=== PATIENT | female | born 1945 | race Asian ===

== ENCOUNTER 2019-08-19 08:55 | Outpatient (CLI) | payer OTHER, BC ==
[2019-08-19 09:28] LABS: PLATELET COUNT 245 K/uL (152-353)
[2019-08-19 09:54] LABS: POTASSIUM 4.5 mmol/L (3.6-5.2)
== END 2019-08-19 21:29 | disposition home or self-care (01) ==
LOC: LABW 08:55
PROVIDERS: Internal Medicine
DX: Z79.899 Other long term (current) drug therapy (principal); E78.49 Other hyperlipidemia; E03.8 Other specified hypothyroidism; E55.9 Vitamin D deficiency, unspecified; E11.43 Type 2 diabetes mellitus with diabetic autonomic (poly)neuropathy
CPT/HCPCS: 36415; 80053; 80061; 82306; 82550; 83036; 83970; 84439; 84443; 85027; 86140

== ENCOUNTER 2020-01-06 09:06 | Outpatient (CLI) | payer OTHER, BC ==
[2020-01-06 09:46] LABS: POTASSIUM 4.1 mmol/L (3.6-5.2)
[2020-01-06 09:50] LABS: PLATELET COUNT 254 K/uL (152-353)
== END 2020-01-06 14:16 | disposition home or self-care (01) ==
LOC: LABW 09:06
PROVIDERS: Internal Medicine
DX: Z79.899 Other long term (current) drug therapy (principal); I10 Essential (primary) hypertension; E11.43 Type 2 diabetes mellitus with diabetic autonomic (poly)neuropathy; E78.49 Other hyperlipidemia; E03.8 Other specified hypothyroidism; E55.9 Vitamin D deficiency, unspecified
CPT/HCPCS: 36415; 80053; 80061; 82306; 82550; 83036; 83970; 84439; 84443; 85027; 86140

== ENCOUNTER 2022-08-27 08:27 | Emergency (ER) | payer OTHER ==
[~2022-08-27] VITALS: Ht 167.6 cm; Wt 136.1 kg
[2022-08-27 08:30] VITALS: TEMP 97.2
[2022-08-27 09:45] LABS: PLATELET COUNT 267 K/uL (152-353)
[2022-08-27 10:12] LABS: POTASSIUM 4.1 mmol/L (3.6-5.2)
[2022-08-27 14:03] VITALS: BP 165/78
== END 2022-08-27 14:03 | disposition home or self-care (01) ==
LOC: ED 08:27
PROVIDERS: Emergency Medicine
DX: K56.699 Other intestinal obstruction unspecified as to partial versus complete obstruction (principal)
CPT/HCPCS: 36415; 80053; 81002; 83605; 83690; 85027; 93005; 96361; 96374; 96375; 99284; J2270; J2405